=== PATIENT | male | born 1975 | race Caucasian/White ===

== ENCOUNTER 2021-12-05 10:54 | Day surgery (SDC) | payer BC ==
[2021-12-01 13:40] VITALS: BMI 33.0
[~2021-12-05 10:54] MED LIST: Magnevist 469MG/ML 20 ML VIAL ONE
[2021-12-05] MEDS ORDERED: Fentanyl 100 MCG/2 ML VIAL ONE (13:03)
[2021-12-05] MEDS ORDERED: Ondansetron PF 4 MG/2 ML Vial ONE (13:15)
[2021-12-05] MEDS ORDERED: Phenylephrine 10 MG/ML VIAL ONE (13:15)
[2021-12-05] MEDS ORDERED: PROPOFOL 200 MG/20 ML VIAL ONE (13:15)
[2021-12-05] MEDS ORDERED: ePHEDrine 50 MG/ML VIAL ONE (13:15)
[2021-12-05] MEDS ORDERED: Lidocaine 1% PF 5 ML VIAL ONE (13:15)
== END 2021-12-05 16:36 | disposition home or self-care (01) ==
LOC: MRI 10:54
PROVIDERS: ATTEND Pain Medicine Pain Medicine
DX: G03.9 Meningitis, unspecified (principal); M48.061 Spinal stenosis, lumbar region without neurogenic claudication; M51.25 Other intervertebral disc displacement, thoracolumbar region; M48.07 Spinal stenosis, lumbosacral region; M47.813 Spondylosis without myelopathy or radiculopathy, cervicothoracic region; M48.03 Spinal stenosis, cervicothoracic region; M47.814 Spondylosis without myelopathy or radiculopathy, thoracic region; M47.816 Spondylosis without myelopathy or radiculopathy, lumbar region; M47.27 Other spondylosis with radiculopathy, lumbosacral region; M48.04 Spinal stenosis, thoracic region; M96.1 Postlaminectomy syndrome, not elsewhere classified; G89.4 Chronic pain syndrome; E03.9 Hypothyroidism, unspecified; Z79.899 Other long term (current) drug therapy; Z88.2 Allergy status to sulfonamides; Z88.5 Allergy status to narcotic agent; Z91.048 Other nonmedicinal substance allergy status; Z98.1 Arthrodesis status
CPT/HCPCS: 72157; 72158; A9579; J2370; J2405; J2704; J3010; J3490